=== PATIENT | female | born 1980 ===

== ENCOUNTER 2018-01-20 09:53 | Emergency (ER) | payer MEDICAID ==
[2018-01-20 10:00] VITALS: BMI 22.7
[2018-01-20 11:26] LABS: SQUAMOUS EPITHIAL 18 /hpf (0-5); URINE BACTERIA MOD (<OCC); URINE BILIRUBIN NEGATIVE (NEGATIVE); URINE BLOOD NEGATIVE (NEGATIVE); URINE CLARITY CLOUDY (Clear); URINE COLOR STRAW (YELLOW); URINE GLUCOSE (UA) NEG (Normal); URINE LEUKOCYTE ESTERASE MOD Leu/uL (Negative); URINE PROTEIN NEGATIVE (NEGATIVE); URINE UROBILINOGEN 0.2-1.0 mg/dL (0.2-1.0)
--- NOTE | 2018-01-20 12:10 | ED PDOC ---
HPI: General Adult Time Seen by Provider: 01/20/18 10:21 Chief Complaint (Nursing): Abdominal Pain History Per: Patient Additional Complaint(s): Pt. states for the past 3 weeks she's had LLQ abd pain associated with constipation but has had constipation all her life. States she has been able to pass stool but is small and hard. Has been using Docusate without relief. Also states for the past 2 days she's had dysuria and frequency. Pt. further reports that 3 weeks ago she had an IUD removed thinking it would help with her constipation. Denies vaginal pain, vaginal bleeding, fever, pelvic pain, back pain, flank pain, N/V/D. Past Medical History Reviewed: Historical Data, Nursing Documentation, Vital Signs Vital Signs: Last Vital Signs Temp 98.1 F 01/20/18 12:59 Pulse 64 01/20/18 12:59 Resp 15 01/20/18 12:59 BP 101/67 01/20/18 12:59 Pulse Ox 100 01/20/18 12:59 - Surgical History Other surgeries: abdominoplasty - 8 years ago - Family History Family History: States: No Known Family Hx - Home Medications Home Medications: Ambulatory Orders Medication Instructions Recorded Nitrofurantoin Macrocrystals 100 mg PO BID #14 cap 01/20/18 [Macrobid] Polyethylene Glycol 3350 [Miralax] 17 gm PO DAILY PRN #30 each 01/20/18 Sod Phos,M-B/Na Phos,Di-Ba [Fleet 1 supp RC DAILY PRN #1 enema 01/20/18 Enema] - Allergies Allergies/Adverse Reactions: Allergies Allergy/AdvReac Type Severity Reaction Status Date / Time No Known Allergies Allergy Verified 01/20/18 10:17 Review of Systems ROS Statement: Except As Marked, All Systems Reviewed And Found Negative Gastrointestinal: Positive for: Abdominal Pain Genitourinary Female: Positive for: Dysuria Physical Exam - Physical Exam Appears: Positive for: Well, Non-toxic, No Acute Distress Skin: Positive for: Normal Color, Warm. Negative for: Rash Eye Exam: Positive for: Normal appearance Cardiovascular/Chest: Positive for: Regular Rate, Rhythm Respiratory: Positive for: Normal Breath Sounds. Negative for: Respiratory Distress Gastrointestinal/Abdominal: Positive for: Normal Exam, Bowel Sounds, Soft. Negative for: Tenderness, Distended, Guarding Back: Positive for: Normal Inspection. Negative for: L CVA Tenderness, R CVA Tenderness Neurologic/Psych: Positive for: Alert, Oriented. Negative for: Aphasia, Facial Droop - Laboratory Results Urine POC: Negative - ECG O2 Sat by Pulse Oximetry: 99 - Progress ED Course And Treament: Obstructive series x-ray: constipation; no obstruction UA showed moderate leuks, no nitrates Informed of results and plan. Pt. agrees and does not want any medications for constipation while in ED. Disposition - Clinical Impression Clinical Impression: Constipation, UTI (urinary tract infection) - Patient ED Disposition Is Patient to be Admitted: No - Disposition Referrals: [facility] [Outside] [facility] [Outside] Disposition: Routine/Home Disposition Time: 12:00 Condition: STABLE Additional Instructions: ALYSE JOE, thank you for letting us take care of you today. Your provider was Precious Deshpande MD and you were treated for ABD PAIN. The emergency medical care you received today was directed at your acute symptoms. If you were prescribed any medication, please fill it and take as directed. It may take several days for your symptoms to resolve. Return to the Emergency Department if your symptoms worsen, do not improve, or if you have any other problems. Please contact your doctor or call one of the physicians/clinics you have been referred to that are listed on the Patient Visit Information form that is included in your discharge packet. Bring any paperwork you were given at discharge with you along with any medications you are taking to your follow up visit. Our treatment cannot replace ongoing medical care by a primary care provider outside of the emergency department. Thank you for allowing the [facility] team to be part of your care today. If you had an X-Ray or CT scan: A Radiologist will review the ED reading if any change in treatment is needed we will contact you. If you had a blood, urine, or wound culture: It will take several days for the results, if any change in treatment is needed we will contact you. If you had an STI test: It will take 48 hours for the results. Please call after 1 week if you have not heard back. Prescriptions: Nitrofurantoin Macrocrystals [Macrobid] 100 mg PO BID #14 cap Polyethylene Glycol 3350 [Miralax] 17 gm PO DAILY PRN #30 each PRN Reason: Constipation Sod Phos,M-B/Na Phos,Di-Ba [Fleet Enema] 1 supp RC DAILY PRN #1 enema PRN Reason: Constipation Instructions: Constipation, Adult (DC), Urinary Tract Infection, Adult (DC) Forms: [facility] (Italian) Print Language: GREENLANDIC
[2018-01-20 13:00] VITALS: BP 101/67; PULSE 64; RESP 15; TEMP 98.1
--- NOTE | 2018-01-20 14:55 | RAD ---
Date of service: 01/20/2018 PROCEDURE: Radiographs of the chest and abdomen (obstructive series) HISTORY: constipation COMPARISON: No prior. TECHNIQUE: AP radiograph of the chest, with upright and supine radiographs of the abdomen. FINDINGS: CHEST: Lungs: Clear. Cardiovascular: Normal size heart. No pulmonary vascular congestion. Pleura: No pleural fluid. No pneumothorax. Other findings: None. ABDOMEN AND PELVIS: Bowel: Constipation without fecal impaction or obstruction. Free air: None. Bones: Unremarkable. Other findings: None. IMPRESSION: Constipation without mechanical obstruction.
[2018-01-20 16:01] VITALS: O2SAT 99
== END 2018-01-20 12:59 | disposition home or self-care (01) ==
LOC: H.ER 09:53
DX: K59.00 Constipation, unspecified (principal); N39.0 Urinary tract infection, site not specified